=== PATIENT | male | born 2005 | race Caucasian/White ===

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

== ENCOUNTER 2024-12-15 09:28 | Emergency (ER) | payer SELFPAY ==
[2024-12-15 09:35] VITALS: BP 145/92; PULSE 89; TEMP 36.7; O2SAT 100
--- NOTE | 2024-12-15 10:48 | W.ED.EYEPROB ---
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 He thinks he probably got something in his left eye on or Monday, 3 or 4 days ago. He has had some redness of his left eye and tearing. He reports he looked closely in the mirror and can see a dot just below his pupil in the left eye. He does not report any retro-orbital pain. His vision remains intact without any deficits that he can recognize. Related Data Home Medications ?Medication ?Instructions ?Recorded ?Confirmed No Known Home Medications 12/15/24 12/15/24 Allergies Allergy/AdvReac Type Severity Reaction Status Date / Time No Known Allergies Allergy Verified 12/15/24 09:39 Review of Systems General: Reports: 10 or more systems reviewed and unremarkable except in HPI and below PFSH ED PFSH: Social History Smoking and tobacco/nicotine status: never used tobacco/nicotine Second hand smoke exposure: Yes Alcohol intake: never Substance/Drug Use: never Adopted: No Highest education level completed: 10th Grade Physical Exam Narrative: EXAM NARRATIVE: Eye exam Pupils equal round and reactive to light. Extraocular movements intact. Left eye with fairly diffuse conjunctival injection. Right eye normal. Lids and lashes normal bilaterally. Tear like discharge from the left eye. Left eye Foreign body visualized near the central vision of the cornea, slightly inferior. Intraocular pressure 17 Eye was stained and anesthetized. Negative Keven sign Fluorescein staining did not reveal any other lesions, foreign bodies, scratches, etc. No afferent pupillary defect. Foreign body was removed using a rotary bur tool. No residual visualized. Const: COMMON NORMALS: no limitations, alert and well nourished EXAM LIMITATIONS: no altered mental status HENMT: COMMON NORMALS: normocephalic, atraumatic and external ears normal HEAD & SCALP: normocephalic and atraumatic EXTERNAL EAR: Yes external ears normal MOUTH: no muffled voice Resp: COMMON NORMALS: normal respiratory effort and No use of accessory muscles Extremity: COMMON NORMALS: normal to inspection Neuro: SENSORIUM/ORIENTATION: Yes alert SPEECH: speech normal Psych: COMMON NORMALS: mental status grossly normal, Normal thought process present, cooperative, normal affect and speech normal SPEECH: Yes normal speech THOUGHT PROCESS: Normal thought process present Skin: COMMON NORMALS: no rashes or lesions noted, turgor normal and no jaundice GENERAL SKIN EXAM: no rashes or lesions noted and turgor normal Course Vital Signs: Vital signs: Vital Signs Temperature 98.0 F 12/15/24 09:35 Pulse Rate 89 12/15/24 09:35 Blood Pressure 145/92 12/15/24 09:35 Pulse Oximetry 100 12/15/24 09:35 Oxygen Delivery Me thod Room Air 12/15/24 09:35 MDM - Eye Problem Medical Decision Making Foreign body left cornea. It was removed using a bur tool. Fluorescein and tetracaine were utilized before and afterwards. No other foreign bodies or ulcers or scratches. Fortunately, the metal came out easily and I did not need to make repeat passes. No visualized rust ring. Tetanus is already up-to-date. Spoke with Dr. Rosen, instructional materials director. Patient will be placed on erythromycin antibiotic ointment and he will follow-up with ophthalmology this week. No radiology studies performed this visit Discharge Plan Discharge Patient Disposition: Home Clinical Impression: S/P removal of metal from eye Condition: Stable Prescriptions: No Action No Known Home Medications Discharge Orders: Discharge ED (Routine); Ordered 12/15/24 Ordered By: Agus Tucker Referrals: Augustus Rosen [Physician] - 12/16/24 (Piece of metal removed from left eye.) Patient Instructions: Foreign Body - Eye Activity Restrictions/Additional Instructions: The foreign body was removed from the left eye. You will need a follow-up in the next 48 hours. I have spoken to Dr. Rosen, instructional materials director (eye doctor). He has agreed to see you in clinic either Monday or Monday. Please call their office and tell them that you were seen in the emergency department and that the emergency medicine doctor spoke with Dr. Rosen who agreed to see you. It is important to follow-up to make sure you are healing appropriately without any rust ring or other complications. If you have severe eye pain, fever, change in visual acuity, or other urgent symptoms then please return to the ER. Use your erythromycin ointment 4 times a day. This acts as a lubricant and an antibiotic. It will cause your vision to be hazy in the left eye where you are putting the ointment. 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
[2024-12-15] MEDS: fluorescein 1 mg Strip EYE-LEFT (10:57)
[2024-12-15] MEDS: tetracaine 0.5% Op Soln 4 mL Btl 1 DROP EYE-RIGHT (10:57)
[2024-12-15] MEDS: erythromycin Op Oint 1 gm 1 APPLIC EYE-LEFT (11:13)
== END 2024-12-15 11:14 | disposition home or self-care (01) ==
PROVIDERS: Emergency Provider Emergency Medicine
DX: T15.92XA Foreign body on external eye, part unspecified, left eye, initial encounter (principal); W44.8XXA Other foreign body entering into or through a natural orifice, initial encounter
CPT/HCPCS: 99283; J9999